=== PATIENT | female | born 1940 | race Caucasian/White ===

== ENCOUNTER 2021-06-18 10:32 | Day surgery (SDC) | payer MEDICARE, OTHER ==
[~2021-06-18] VITALS: Ht 172.7 cm; Wt 81.0 kg
[~2021-06-18 10:32] MED LIST: CALCIUM 1,0001 EACH PO; CITRACAL + D M1 EACH PO; CYTOMEL5 MCG PO; GLUCOSAMINE H1500 MG PO; HYZAAR 100-251 EACH PO; IBUPROFEN800 MG PO; LEVO-T75 MCG PO; MOTRIN IB200 MG PO; MULTI VITAMIN1 EACH PO; NORCO 5-325 TA1 EACH PO; POTASSIUM CHLO20 ME1 PO; SUPPORT118 ML PO; VITAMIN E1000 UNI1 PO
--- NOTE | 2021-06-18 13:29 | NUR ---
06/18/21 1329 Raine Brennan 1326-PATIENT ARRIVED TO PACU ON 2L NC RR EVEN PATIENT AWAKE DROWSY DENIES PAIN OR NAUSEA. LAYING LEFT LATERAL ABDOMEN SOFT ENCOURAGED TO PASS GAS. IVF INFUSING
--- NOTE | 2021-06-24 13:17 | OR ---
[facility] [address], [place] [address] Signed DATE OF OPERATION: 06/18/2021 SURGEON: Lynn Walter MD PREOPERATIVE DIAGNOSIS: Known diverticulosis, recent recurrent bouts of diverticulitis. POSTOPERATIVE DIAGNOSIS: Sigmoid diverticulosis, no evidence of malignancy. PROCEDURE: Total colonoscopy to cecum. ANESTHESIA: Intravenous sedation, fentanyl 100 mcg and Versed 5 mg. INDICATION: This 81-year-old white woman is a patient MIRYAM Fisher in [place] who was last seen by me in 2006. She has had episodes that are highly suggestive of acute diverticulitis. She has had pain for four months more or less, but it has abated largely. Clinical examination does not show acute diverticulitis. She has undergone colonoscopy in the distant past confirming diverticulosis. She is admitted at this time to undergo colonoscopy to better characterize the problem and specifically to assess for possible neoplasm. She did have a polyp noted in 2006 on colonoscopy, which was pedunculated. She has no family history of colon cancer that she is aware of. It is notable the patient has BRCA1 mutation, indeed has lost her daughter at a relatively young age from breast cancer. The patient has had a mastectomy herself. She understands risk of bleeding, infection, and perforation related to colonoscopy and wished to proceed. FINDINGS: The prep was good. Complete colonoscopy was undertaken to the cecum without question. The ileocecal valve and appendiceal orifice were identified and normal. She had numerous diverticula of the sigmoid and left colon, but no evidence of polyps, colitis, or cancer. DESCRIPTION OF PROCEDURE: The patient was brought to the endoscopy suite and placed in lateral decubitus position, given intravenous sedation to the point of slurred speech and nystagmus. Digital rectal examination was normal. Electronically Signed By: LYNN WALTER MD 06/24/21 1317 PATIENT NAME: LAKSHMI YOUNG OPERATIVE REPORT DATE OF : 42 REPORT #: [id number] PHYSICIAN: LYNN WALTER MD PCP: NAVNEET OSCAR PA-C REPORT IS CONFIDENTIAL AND NOT TO BE RELEASED WITHOUT AUTHORIZATION [facility] [address], [place] [address] Signed An Olympus video colonoscope was passed in the rectum and manipulated into the sigmoid where diverticula were identified. The scope was advanced beyond this ultimately into the cecum. The ileocecal valve and appendiceal orifice were normal. The scope was withdrawn from that point. Examination throughout showed no sign of abnormality until the left colon where diverticula were once again noted. The most numerous diverticula were in the sigmoid itself. Retroflexed view of the rectum was normal. Scope was removed and the patient was taken to the recovery room in good condition. CONCLUDING DIAGNOSIS: Diverticular changes. No evidence of polyps or cancer. PLAN: Recommend high-fiber diet. She will return to the ongoing care of Navneet Oscar. As regards surveillance colonoscopy, would recommend 10 year surveillance if clinically appropriate for her advanced age of 89 years at that time. MD ADALBERTO Golden/JIMY /[id number] cc: MIRYAM Fisher Copies: ~ Electronically Signed By: LYNN WALTER MD 06/24/21 1317 PATIENT NAME: LAKSHMI YOUNG OPERATIVE REPORT DATE OF : 42 REPORT #: [id number] PHYSICIAN: LYNN WALTER MD PCP: NAVNEET OSCAR PA-C REPORT IS CONFIDENTIAL AND NOT TO BE RELEASED WITHOUT AUTHORIZATION
== END 2021-06-18 14:10 | disposition home or self-care (01) ==
LOC: OPS 10:32 → DS 13:00 → OPS 13:00
PROVIDERS: ATTEND Surgery
PROC: 0DJD8ZZ Inspection of Lower Intestinal Tract, Via Natural or Artificial Opening Endoscopic (ICD-10-PCS; principal; 2021-06-18 13:00)
DX: K57.30 Diverticulosis of large intestine without perforation or abscess without bleeding (principal); I10 Essential (primary) hypertension; K21.9 Gastro-esophageal reflux disease without esophagitis; E07.9 Disorder of thyroid, unspecified; Z86.010 Personal history of colon polyps; Z85.3 Personal history of malignant neoplasm of breast; Z90.13 Acquired absence of bilateral breasts and nipples; Z87.891 Personal history of nicotine dependence
CPT/HCPCS: 99153; G0500; J2250; J3010; J7121